=== PATIENT | male | born 1955 | race Caucasian/White ===

== ENCOUNTER 2016-11-30 19:34 | Observation (INO) | payer OTHER ==
[~2016-11-30] VITALS: Ht 175.3 cm; Wt 88.2 kg
[~2016-11-30 19:34] MED LIST: ASPIRIN325 MG PO; BACTRIM,SEPT1 TABLET PO; BYSTOLIC10 MG PO; CEFTIN250 MG PO; CRESTOR20 MG PO; DEPAKOTE250 MG PO; DOXYCYCLINE HY100 M3 PO; EXELON PATCH9.5 MG TD; KEFLEX500 MG PO; LORAZEPAM0.5 MG PO; SERTRALINE HCL50 MG PO; TAMSULOSIN HCL0.4 MG PO; ZOLOFT100 MG PO
[2016-11-30 20:00] LABS: HEMATOCRIT 42.2 % (38.0-50.0); MCH 28.6 PG (29.0-34.0); MCHC 34.4 G/DL (30.0-36.0); MCV 83.2 FL (86-99); MEAN PLAT.VOLUME 9.1 uM^3 (9.0-12.4); PLATELET COUNT 224 K/uL (156-360); RBC DIS.WIDTH-CV 12.2 % (11.8-14.6); RED BLOOD COUNT 5.07 M/uL (4.00-5.50); WHITE BLOOD COUNT 15.4 K/uL (4.1-10.2)
[2016-11-30 20:08] LABS: CHLORIDE 104 mEq/L (99-109); POTASSIUM 3.9 mEq/L (3.7-5.4); SODIUM 139 mEq/L (136-147)
[2016-11-30 20:14] LABS: ANION GAP 14 MEQ/L (2-14); GFR ESTIMATE (CALCULATED) > 59 mL/min/; GLUCOSE 172 mg/dL (70-99); UREA NITROGEN (BUN) 15 mg/dL (9-23)
[2016-11-30 20:15] LABS: BASOPHIL COUNT 0.1 K/uL (0-0.1); EOSINOPHIL (%) 0.4 % (0-5); EOSINOPHIL COUNT 0.1 K/uL (0-0.3); IMMATURE GRANULOCYTE (%) 0.5 % (0.0-0.7); IMMATURE GRANULOCYTE COUNT 0.1 K/uL; INSTRUMENT ABS NEUTROPHIL CT 12.3 K/uL; LYMPHOCYTE COUNT 1.6 K/uL (1.0-2.8); MONOCYTE (%) 5.8 % (3-12); MONOCYTE COUNT 0.9 K/uL (0-0.8); NEUTROPHIL (%) 82.2 % (45-76); NEUTROPHIL COUNT 12.3 K/uL (1.8-6.4)
[2016-11-30 20:31] LABS: INTER. NORMALIZED RATIO 1.1; PROTHROMBIN TIME 11.8 SEC (10.2-12.9)
[2016-11-30 20:33] LABS: PTT 24.4 SEC (25-37)
[2016-11-30 20:43] LABS: Estimated Average Glucose 123 mg/dL (70-123); HEMOGLOBIN A1c (GLYCOHEMOGLOB) 5.9 % HGB (Below 5.7)
[2016-11-30 20:46] LABS: HDL CHOLESTEROL 30 MG/DL (Desirable>=40); LDL CHOLESTEROL 153 mg/dL (Desirable<100); NON-HDL CHOLESTEROL 193 mg/dL (Desirable<160); TOTAL CHOLESTEROL 223 mg/dL (Desirable<200); TRIGLYCERIDES 199 MG/DL (Normal: <150)
[2016-11-30 23:34] VITALS: BP 140/82
[2016-11-30 23:34] LABS: ADD MIUA? NO; BILIRUBIN NEGATIVE; BLOOD NEGATIVE; COLOR YELLOW ((YELLOW)); GLUCOSE (STRIP) 50; KETONES NEGATIVE; LEUKOCYTES NEGATIVE; NITRITE NEGATIVE; PROTEIN (STRIP) NEGATIVE; UROBILINOGEN 0.2 MG/DL (0.2-1.0)
[2016-11-30 23:43] LABS: SPECIFIC GRAVITY 1.052 (1.000-1.030)
[2016-12-01 05:02] VITALS: BP 140/88
[2016-12-01 06:25] LABS: HEMATOCRIT 39.7 % (38.0-50.0); MCH 28.3 PG (29.0-34.0); MCHC 33.8 G/DL (30.0-36.0); MCV 83.8 FL (86-99); MEAN PLAT.VOLUME 9.3 uM^3 (9.0-12.4); PLATELET COUNT 226 K/uL (156-360); RBC DIS.WIDTH-CV 12.4 % (11.8-14.6); RBC DIS.WIDTH-SD 37.5 % (39-53); RED BLOOD COUNT 4.74 M/uL (4.00-5.50); WHITE BLOOD COUNT 11.4 K/uL (4.1-10.2)
[2016-12-01 07:35] VITALS: BP 147/90
[2016-12-01 12:57] VITALS: BP 144/84
[2016-12-01 16:43] LABS: POINT-OF-CARE METER ID UU13113831
[2016-12-01 20:00] VITALS: BP 158/78
[2016-12-02] VITALS: BP 160/76
[2016-12-02 09:00] VITALS: BP 151/90
[2016-12-02 12:05] VITALS: BP 135/82
[2016-12-02 16:13] VITALS: BP 103/61
[2016-12-02 20:00] VITALS: BP 150/84
[2016-12-02 23:45] VITALS: BP 178/89
[2016-12-03 03:26] VITALS: BP 165/97
[2016-12-03 09:53] VITALS: BP 137/89
[2016-12-03 11:04] VITALS: BP 130/83
[2016-12-03] MEDS ORDERED: LORAZEPAM0.5 MG PO (15:06)
[2016-12-04 12:00] LABS: CREATININE 1.2 mg/dL (0.6-1.3); POTASSIUM 3.9 mEq/L (3.7-5.4)
== END 2016-12-03 17:18 | disposition home or self-care (01) ==
LOC: EME → EDBD 19:34 → EME 19:34 → 5WEST 22:32 → EDOF 22:32 → ENRESERV 22:36 → 5WEST 23:24 → ENPENDDIS 12-03 → 5WEST 12-03 17:18
PROVIDERS: Emergency Medicine; Hospitalist; Internal Medicine
DX: G31.83 Neurocognitive disorder with Lewy bodies (principal); F02.80 Dementia in other diseases classified elsewhere, unspecified severity, without behavioral disturbance, psychotic disturbance, mood disturbance, and anxiety; I10 Essential (primary) hypertension; E78.5 Hyperlipidemia, unspecified; F32.9 Major depressive disorder, single episode, unspecified; F41.9 Anxiety disorder, unspecified; G47.00 Insomnia, unspecified; Z86.73 Personal history of transient ischemic attack (TIA), and cerebral infarction without residual deficits; Z79.82 Long term (current) use of aspirin
CPT/HCPCS: 70450; 70496; 70498; 70551; 71010; 80047; 80048; 80048 91; 80061; 80164; 81003; 82140; 82607; 82948; 83036; 84439; 84443; 85025; 85025 91; 85027; 85610; 85730; 93005; 95819; 99281; 99285; G0378; G8978 GP CI; G8979 GP CI; G8980 GP CI; G8987 GO CH; G8988 GO CH; G8989 GO CH; J1650; J2060